=== PATIENT | male | born 1960 | race Caucasian/White ===

== ENCOUNTER → 2016-08-25 | Outpatient (CLI) | payer OTHER ==
[2016-08-25 10:19] LABS: ESTIMATED AVERAGE GLUCOSE 126 mg/dl; HA1C FLAG Normal (Normal)
[2016-08-25 10:25] LABS: CHOLESTEROL/HDL RATIO 3.9
== END | disposition home or self-care (01) ==
LOC: C.LAB 07:22
PROVIDERS: ATTEND Internal Medicine
DX: E78.5 Hyperlipidemia, unspecified (principal); R73.9 Hyperglycemia, unspecified

== ENCOUNTER → 2017-02-25 | Outpatient (CLI) | payer OTHER ==
[2017-02-25 08:42] LABS: ALT/SGPT 30 U/L (12-78); BLOOD UREA NITROGEN 17 mg/dl (7-18); BUN/CREATININE RATIO 17.4 (10-20); CALCIUM 9.2 mg/dl (8.5-10.1); CARBON DIOXIDE 32 mmol/L (21-32); CHLORIDE 107 mmol/L (98-107); CHOLESTEROL 124 mg/dl (0-200); CREATININE 0.99 mg/dl (0.60-1.40); GLUCOSE 95 mg/dl (70-99); POTASSIUM 4.1 mmol/L (3.5-5.1); SODIUM 141 mmol/L (136-145); TRIGLYCERIDES 98 mg/dl (0-150); VERY LOW DENSITY LIPOPROT CALC 20 mg/dl
[2017-02-25 08:51] LABS: ALKALINE PHOSPHATASE 62 U/L (45-117); AST/SGOT 20 U/L (15-37); CHOLESTEROL/HDL RATIO 3.3; HDL CHOLESTEROL 38 mg/dl; LDL CHOLESTEROL CALCULATED 66 mg/dl; PROSTATE SPECIFIC ANTIGEN 0.792 ng/ml (0.000-4.000)
[2017-02-25 08:58] LABS: ESTIMATED AVERAGE GLUCOSE 131 mg/dl; HA1C FLAG Normal (Normal)
== END | disposition home or self-care (01) ==
LOC: C.LAB 07:42
PROVIDERS: ATTEND Internal Medicine
DX: E78.5 Hyperlipidemia, unspecified (principal); N40.0 Benign prostatic hyperplasia without lower urinary tract symptoms; E03.9 Hypothyroidism, unspecified; R73.9 Hyperglycemia, unspecified

== ENCOUNTER → 2017-06-28 | Outpatient (CLI) | payer OTHER | END | disposition home or self-care (01) | LOC: C.LAB 07:12 | PROVIDERS: ATTEND Internal Medicine Endocrinology, Diabetes & Metabolism | DX: R73.9 Hyperglycemia, unspecified (principal) ==

== ENCOUNTER → 2017-09-04 | Outpatient (CLI) | payer OTHER ==
[2017-09-04 11:49] LABS: ALBUMIN 3.6 gm/dl (3.4-5.0); ALT/SGPT 29 U/L (12-78); AST/SGOT 21 U/L (15-37); BLOOD UREA NITROGEN 21 mg/dl (7-18); CALCIUM 9.3 mg/dl (8.5-10.1); CARBON DIOXIDE 31 mmol/L (21-32); CREATININE 1.04 mg/dl (0.60-1.40); GLUCOSE 106 mg/dl (70-99); POTASSIUM 3.7 mmol/L (3.5-5.1); SODIUM 140 mmol/L (136-145)
[2017-09-04 11:58] LABS: ALKALINE PHOSPHATASE 64 U/L (45-117); CHOLESTEROL 104 mg/dl (0-200); LDL CHOLESTEROL CALCULATED 46 mg/dl; TOTAL PROTEIN 7.2 gm/dl (6.4-8.2)
== END | disposition home or self-care (01) ==
LOC: C.LABBC 07:26
PROVIDERS: ATTEND Internal Medicine
DX: E03.9 Hypothyroidism, unspecified (principal); R73.9 Hyperglycemia, unspecified; E78.5 Hyperlipidemia, unspecified; Z11.59 Encounter for screening for other viral diseases

== ENCOUNTER 2020-08-25 19:06 | Observation (INO) ==
[2020-08-25] MEDS ORDERED: ASPIRIN CHEW 324 MG PO STA (19:17)
[2020-08-25 19:24] LABS: Hematocrit (blood only) 48.1 % (42-52); Hemoglobin 16.2 g/dL (14.0-18.0); Mean Corpuscular Hemoglobin 29.2 pg (25-34); Mean Corpuscular Hgb Conc 33.7 g/dL (32-36); Mean Corpuscular Volume 86.7 fL (80-100); Platelet Count 240 K/uL (130-400); RDW Coefficient of Variation 14.2 % (11.5-14.5); RDW Standard Deviation 45.3 fL (36.4-46.3); Red Blood Count 5.55 M/uL (4.7-6.1); White Blood Count 7.51 K/uL (4.8-10.8)
[2020-08-25 19:35] LABS: INR 0.9 (0.9-1.1); Partial Thromboplastin Ratio 1.1; Partial Thromboplastin Time 30.5 Seconds (21.0-31.0); Prothrombin Time 9.9 Seconds (9.0-12.0)
[2020-08-25 19:42] LABS: Alanine Aminotransferase 60 U/L (12-78); Albumin Level 3.6 gm/dl (3.4-5.0); Aspartate Aminotransferase 31 U/L (15-37); BUN Creatinine Ratio 22.4 (10-20); Bilirubin Direct 0.1 mg/dl (0-0.2); Blood Urea Nitrogen 23 mg/dl (7-18); Calcium 9.4 mg/dl (8.5-10.1); Carbon Dioxide 30 mmol/L (21-32); Chloride 103 mmol/L (98-107); Creatinine Clr Calc Pharmacy 73.8 ml/min; Est GFR (African American) 91.1; Est GFR (Non-African American) 78.6; Glucose 96 mg/dl (70-99); Lipase 288 U/L (73-393); Potassium 3.4 mmol/L (3.5-5.1); Sodium 140 mmol/L (136-145)
[2020-08-25 19:48] LABS: Alkaline Phosphatase 108 U/L (45-117); Bilirubin,Total 0.3 mg/dl (0.2-1); Total Protein 7.6 gm/dl (6.4-8.2); Troponin I < 0.015 ng/ml (0-0.045)
[2020-08-25 20:00] LABS: Basophils # (auto) 0.04 K/uL (0-0.2); Basophils % (auto) 0.5 %; Eosinophils # (auto) 0.44 K/uL (0-0.5); Eosinophils % (auto) 5.9 %; Immature Granulocytes # (auto) 0.01 K/uL (0.00-0.02); Immature Granulocytes % (auto) 0.1 %; Lymphocytes % (auto) 54.6 %; Monocytes # (auto) 0.81 K/uL (0.11-0.59); Monocytes % (auto) 10.8 %; Neutrophils # (auto) 2.11 K/uL (1.4-6.5); Neutrophils % (auto) 28.1 %
--- NOTE | 2020-08-25 20:07 | XRay Report ---
XR chest 2V PA/lateral HISTORY: 59 years-old Male Chest Pain . Chest pain COMPARISON: Chest radiograph 01/29/2018 TECHNIQUE: PA and lateral views of the chest FINDINGS: Cardiomediastinal and hilar silhouettes are within normal limits. No pneumothorax, pleural effusion, airspace consolidation or overt pulmonary edema. Bones of the chest appear grossly intact. IMPRESSION: No acute process. ACT 112: Negative or not required by law. The above report was generated using voice recognition software. It may contain grammatical, syntax o r spelling errors. Electronically signed by: Kumar Ferrera M.D. 08/25/2020 8:05 PM
--- NOTE | 2020-08-25 21:30 | History & Physical Report ---
Date of Service August 25, 2020 Assessment & Plan (1) Chest pain: 59yo male with history of HTN, HLP, pre-DM and strong family history of CAD presenting with episodic left sided chest discomfort. Troponin x 1 negative. EKG with no acute ischemic changes -Observation to PCU -Trend troponin q 8 hours x 3 sets -Check Hgb A1C and lipid panel -ASA 81mg po daily -Continue Atorvastatin 10mg po qHS -Nitro as needed for CP Present on Admission?: Yes (2) Hypertension: Blood pressure acceptable at present -Continue Chlorthalidone -Continue Benicar -Continue to monitor (3) Dyslipidemia: Chronic. -Check lipid panel -Continue Atorvastatin -Continue CoQ10 -Patient on Rapatha q 2 weeks Present on Admission?: Yes (4) Impaired fasting glucose: Blood sugar well controlled at present, 96. -Hold home agents - Metformin, Empagliflozin and Semaglutide -ISS -Goal blood sugar 100 - 140 -Check HgbA1C F/E/N - Heplock. K repletion with 40mEq - repeat chemistry in AM, Vegetarian diet Ppx - Low risk for DVT, encourage ambulation Code - Full Dispo - Admit to PCU Present on Admission?: Yes History of Present Illness Chief Complaint: chest pain Primary Care Provider: Dl Rogers MD Arnel Gonzalez is a 59yo male presenting with episodic chest discomfort. He reports experiencing brief episodes of left sided chest discomfort today. Over the last 7-10 days he has woken up between 03:00 and 05:00 with the feeling of a racing heart and pounding headache. He checked his pulse during these episodes and found it to be 90 - 100 bpm and regular. He reports his baseline resting heart rate to be typically 50-60 bpm. He also reports BP has been higher than usual - appx 170/110 at times. Patient is very active. He reports slight decrease in exercise tolerance with some mild BERRY and easy fatigability. He denies exertional chest pain or palpitations. No syncope. No edema/orthopnea. Patient with history of HTN - well controlled on outpatient regimen as well as pre-DM. He has a strong family history of CAD - brother age 65 with recent CABG x 4V, brother age 55 with cardiac stent, father with ischemic cardiomyopathy, mother with CAD as well. Patient had a cardiac CT performed appx 5 years ago which showed diffuse, non- obstructive disease in coronary vessels - Cx and LAD. He has had both stress echo and dobutamine stress testing in the past which were unremarkable - no recent stress testing. No history of prior cardiac catheterization. On arrival to the ER patient afebrile, HD stable, NAD ER Course: ASA 324mg Allergies Allergy/AdvReac Type Severity Reaction Status Date / Time rosuvastatin [From Crestor] AdvReac Mild Muscle Verified 08/25/20 21:10 spasms Home Medications Medication Instructions Recorded Confirmed Type cholecalciferol (vitamin D3) 125 5,000 units PO QPM 04/25/19 08/25/20 History mcg (5,000 unit) capsule coenzyme Q10 400 mg capsule 400 mg PO QPM 04/25/19 08/25/20 History folic acid 1 mg tablet 1 mg PO QAM 04/25/19 08/25/20 History aspirin 81 mg PO QAM 07/02/19 08/25/20 History chlorthalidone 12.5 mg PO QAM 07/02/19 08/25/20 History Benicar 40 mg tablet 40 mg PO HS #30 tab NS 03/24/20 08/25/20 Rx atorvastatin 10 mg tablet 10 mg PO HS #90 tab 03/24/20 08/25/20 Rx empagliflozin 10 mg tablet 10 mg PO QAM #30 tab 03/24/20 08/25/20 Rx metformin 500 mg tablet,extended 500 mg PO QAM #100 tab 03/24/20 08/25/20 Rx release 24 hr potassium chloride 10 mEq 10 meq PO QAM #100 tab 03/24/20 08/25/20 Rx tablet,extended release evolocumab [Repatha SureClick] 140 mg SUBCUT .[id number] 08/25/20 08/25/20 History semaglutide [Rybelsus] 7 mg PO QAM 08/25/20 08/25/20 History Past Med/Surg History Medical History (Updated 08/26/20 @ 02:07 by Jelena Mcnamara DO) Diabetes mellitus, type 2 Hx of hepatitis HX OF HEPATITS A A CHILD AND NO CURRENT PROBLEMS Hyperlipidemia Hypertension Surgical History History of colonoscopy History of herniorrhaphy right inguinal hernia about 15 yrs ago S/P tonsillectomy Family History Mother Cardiac disorder Diabetes Father Cardiac disorder Hypertension Family/Other Heart disease Denies family history of Colon cancer Ovarian cancer Prostate cancer Myocardial infarction Breast cancer Social History Smoking Status: Never smoker Second Hand Exposure: No; Hx Alcohol Use: Yes (social) Alcohol type: wine Hx Substance Use: No Preferred Language: Cambodian Communication Ability: Effective Visual Impairment: No Limitations Hearing Ability: Normal Research Hydrologist Required: No Beliefs That Will Affect Care: None marital status: Current Living Situation: Spouse current occupational status: employed current occupation: Physician Feels Safe at Home: Yes Safety Concerns: Feels Safe At This Time Childhood Exposure to Second-Hand Smoke: No Dental Care, Regularly: Yes Physical Activity Frequency: 3-4 Times per Week Seatbelt Use: always Sunscreen Use: Yes Assistive Devices: Glasses Review of Systems Review of Systems: All systems reviewed & are unremarkable except as noted in HPI & below Physical Exam Physical Exam: General: patient resting comfortably, NAD, non-toxic in appearance, AA&O x 4 Skin: warm, dry, intact, no rashes or lesions HEENT: NC/AT, PERRL, EOMI, anicteric sclera, conjunctiva without injection, external ear normal to inspection and nontender, nares patent, moist mucus membranes, dentition intact, no oropharyngeal lesions, neck supple, trachea midline, no LAD, no thyromegaly, no JVD Heart: +S1/S2, regular, no m/r/g Lungs: equal air entry bilaterally, no rales/rhonchi/wheezes Abd: +BS, soft, NT/ND, no masses/organomegaly/ascites Ext: warm, 2+ pulses in UE/LE bilaterally, no clubbing/cyanosis or edema Neuro: nonfocal, patient AA&O x 4, speech intact, no facial droop, moving all extremities on command with equal strength 5/5 Results & Data Results & Data ([facility]) Vital Signs (Past 12 Hours) Vital Signs Temp Pulse Resp BP Pulse Ox 08/25/20 20:00 65 18 135/91 97 08/25/20 19:30 61 16 140/95 97 08/25/20 19:28 60 18 97 08/25/20 19:15 66 14 139/88 96 08/25/20 19:10 36.8 C 59 L 18 139/88 97 PG Care Time/CCT Total # of Minutes Spent Total Time Spent with Patient: Total time spent is greater than 50% in coordination of care (as documented) at patient's floor/unit and/or counseling patient: Coding Level of Care Code 79779 OBS Care - Level 3 Diagnoses Chest pain R07.9 Chest pain type: unspecified Hypertension I10 Hypertension type: essential hypertension Dyslipidemia E78.5 Impaired fasting glucose R73.01 (1) Chest pain Chest pain type: unspecified Qualified Code(s): R07.9 - Chest pain, unspecif ied (2) Hypertension Hypertension type: essential hypertension Qualified Code(s): I10 - Essential (primary) hypertension
[2020-08-25] MEDS ORDERED: GLUCAGON FOR INJ 1 MG VIAL SQ PRN (22:57)
[2020-08-25] MEDS ORDERED: ACETAMINOPHEN 325 MG TAB PO PRN (22:57)
[2020-08-25] MEDS ORDERED: DEXTROSE 50% 50 ML SYRINGE IV PRN (22:57)
[2020-08-25] MEDS ORDERED: GLUCOSE 10 TABS/TUBE PO PRN (22:57)
[2020-08-25] MEDS ORDERED: CARBOHYDRATES FOR HYPOGLYCEMIA PO PRN (22:57)
[2020-08-25] MEDS ORDERED: POTASSIUM CHLORIDE CRTAB 20 MEQ TABCR PO STA (22:57)
[2020-08-25] MEDS ORDERED: NITROGLYCERIN SL 0.4 MG/TAB TAB SL PRN (22:57)
[2020-08-25] MEDS ORDERED: ONDANSETRON INJ 2 MG/ML 2 ML VIAL IV PRN (22:57)
[2020-08-25] MEDS ORDERED: GLUCOSE 40% GEL 15 GM TUBE PO PRN (22:57)
[2020-08-25 23:14] LABS: Magnesium 2.4 mg/dl (1.8-2.4)
--- NOTE | 2020-08-26 02:06 | Emergency Department Note ---
History of Present Illness General Chief Complaint: Chest Pain History of Present Illness Provider Complaint: chest pain Onset (ago): hour(s) less than 1 Duration: intermittent and now resolved Onset: during rest Pain Location: left chest Pain Radiation: none Severity: moderate Maximum Pain Intensity: 7 Current Pain Intensity: 0 Quality: + aching Relieved By: + nothing Exacerbated By: + nothing Context: no recent illness, no recent surgery, no recent immobilization, no recent travel, no trauma/injury, no new medications and no history of DVT/PE Associated symptoms: + palpitations; no nausea, no vomiting, no diaphoresis, no dyspnea, no sense of impending doom, no syncope, no fever, no cough and no leg swelling Patient reports he had 4 episodes within 15 minutes when his symptoms started approximately 1 hour ago. He states the pain lasted for 15 to 20 seconds and then resolved without intervention. Home Medications Medication Instructions Recorded Confirmed Type cholecalciferol (vitamin D3) 125 5,000 units PO QPM 04/25/19 08/25/20 History mcg (5,000 unit) capsule coenzyme Q10 400 mg capsule 400 mg PO QPM 04/25/19 08/25/20 History folic acid 1 mg tablet 1 mg PO QAM 04/25/19 08/25/20 History aspirin 81 mg PO QAM 07/02/19 08/25/20 History chlorthalidone 12.5 mg PO QAM 07/02/19 08/25/20 History Benicar 40 mg tablet 40 mg PO HS #30 tab NS 03/24/20 08/25/20 Rx atorvastatin 10 mg tablet 10 mg PO HS #90 tab 03/24/20 08/25/20 Rx empagliflozin 10 mg tablet 10 mg PO QAM #30 tab 03/24/20 08/25/20 Rx metformin 500 mg tablet,extended 500 mg PO QAM #100 tab 03/24/20 08/25/20 Rx release 24 hr potassium chloride 10 mEq 10 meq PO QAM #100 tab 03/24/20 08/25/20 Rx tablet,extended release evolocumab [Repatha SureClick] 140 mg SUBCUT .[id number] 08/25/20 08/25/20 History semaglutide [Rybelsus] 7 mg PO QAM 08/25/20 08/25/20 History Allergies Allergy/AdvReac Type Severity Reaction Status Date / Time rosuvastatin [From Crestor] AdvReac Mild Muscle Verified 08/25/20 21:10 spasms Past Med/Surg History Medical History Diabetes mellitus, type 2 Fever Headache Hx of hepatitis HX OF HEPATITS A A CHILD AND NO CURRENT PROBLEMS Hyperlipidemia Hypertension Surgical History History of colonoscopy History of herniorrhaphy right inguinal hernia about 15 yrs ago S/P tonsillectomy Family History Mother Cardiac disorder Diabetes Father Cardiac disorder Hypertension Family/Other Heart disease Denies family history of Colon cancer Ovarian cancer Prostate cancer Myocardial infarction Breast cancer Social History Smoking Status: Never smoker Second Hand Exposure: No; Hx Alcohol Use: Yes (social) Alcohol type: wine Hx Substance Use: No Preferred Language: Georgian Communication Ability: Effective Visual Impairment: No Limitations Hearing Ability: Normal Director Facilities Maintenance Required: No Beliefs That Will Affect Care: None marital status: Current Living Situation: Spouse current occupational status: employed current occupation: Physician Feels Safe at Home: Yes Safety Concerns: Feels Safe At This Time Childhood Exposure to Second-Hand Smoke: No Dental Care, Regularly: Yes Physical Activity Frequency: 3-4 Times per Week Seatbelt Use: always Sunscreen Use: Yes Assistive Devices: Glasses Review of Systems A total of 10 systems reviewed and were otherwise negative Physical Exam Vital Signs Vital Signs - 24 hr 08/25/20 19:10 08/25/20 19:15 08/25/20 19:28 Temperature 36.8 C Temperature Source Oral Pulse Rate 59 L 66 60 Pulse Rate from SpO2 Sensor 61 Pulse Rhythm Regular Regular Pulse Strength Normal Respiratory Rate 18 14 18 Respiratory Effort / Characteristics Non-Labored Spontaneous Respiratory Depth Normal Respiratory Pattern Regular Blood Pressure 139/88 139/88 Blood Pressure Mean 105 106 Blood Pressure Position Lying Pulse Oximetry 97 96 97 Oxygen Delivery Method Room Air Room Air Room Air Sepsis Recent Fever Within 48 Hours No Sepsis New/Unexplained Change in Mental Status No Sepsis Action Taken by Nursing No Action Required 08/25/20 19:30 08/25/20 20:00 08/25/20 20:30 Temperature Temperature Source Pulse Rate 61 65 58 L Pulse Rate from SpO2 Sensor 60 64 58 L Pulse Rhythm Pulse Strength Respiratory Rate 16 18 16 Respiratory Effort / Characteristics Respiratory Depth Respiratory Pattern Blood Pressure 140/95 135/91 139/94 Blood Pressure Mean 124 111 104 Blood Pressure Position Pulse Oximetry 97 97 97 Oxygen Delivery Method Room Air Room Air Room Air Sepsis Recent Fever Within 48 Hours Sepsis New/Unexplained Change in Mental Status Sepsis Action Taken by Nursing 08/25/20 21:00 Temperature Temperature Source Pulse Rate 56 L Pulse Rate from SpO2 Sensor 56 L Pulse Rhythm Pulse Strength Respiratory Rate 21 Respiratory Effort / Characteristics Respiratory Depth Respiratory Pattern Blood Pressure 123/96 Blood Pressure Mean 99 Blood Pressure Position Pulse Oximetry 98 Oxygen Delivery Method Room Air Sepsis Recent Fever Within 48 Hours Sepsis New/Unexplained Change in Mental Status Sepsis Action Taken by Nursing Physical Exam GENERAL: He is oriented to person, place, and time. He appears well-developed and well-nourished. He does not appear distressed. HENT: Exam performed. - Head: Normocephalic and atraumatic. - Right Ear: External ear normal. No mastoid tenderness. - Left Ear: External ear normal. No mastoid tenderness. - Mouth/Throat: The oropharynx is clear and moist. No trismus in the jaw. No dental abscesses or uvula swelling. No oropharyngeal exudate or tonsillar abscesses. EYES: Conjunctivae and EOM are normal. Pupils are equal, round, and reactive to light. Right eye exhibits no discharge. Left eye exhibits no discharge. No scleral icterus. NECK: Normal range of motion. Neck supple. No JVD present. No spinous process tenderness present. No carotid bruit present. No rigidity. No tracheal deviation and normal range of motion present. No Brudzinski's sign and no Kernig's sign noted. CV: Normal rate, regular rhythm, normal heart sounds and intact distal pulses. There is no peripheral edema. Palpable radial pulses bue. PULM/CHEST: Effort normal and breath sounds normal. No respiratory distress. No stridor. He has no wheezes. He has no rales. - Chest Wall: He exhibits no tenderness. ABD: The abdomen is soft. Bowel sounds are normal. He has no distension. No mass is present. There is no tenderness. There is no rebound, no guarding, no Brewer's sign and no tenderness at McBurney's point. Rovsig negative. MUSC/SKEL: Normal range of motion. There is no peripheral edema, tenderness or deformity. LYMPH: No cervical adenopathy. NEURO: He is alert and oriented to person, place, and time. He has normal strength. No cranial nerve deficit or sensory deficit. Coordination and gait normal. GCS eye subscore is 4. GCS verbal subscore is 5. GCS motor subscore is 6. Cerebellar tests wnl. SKIN: Skin is warm and dry. He is not diaphoretic. PSYCH: He has a normal mood and affect. Behavior is normal. Judgment and thought content normal. Course Course 1908: The patient was evaluated in room C3. A complete history and physical exam was performed. Cardiac monitoring: An order was placed for continuous cardiac monitoring. The monitor shows a rate of 60 with sinus rhythm 2024: Vital signs stable. Labs and imaging within normal limits. Patient had an acute episode where he started having chest discomfort again for a few seconds but resolved without intervention. EKGs have all been within normal limits. Patient has a moderate heart score. Patient was offered inpatient observation versus close outpatient follow-up with cardiology and after discussing with his he elected to have inpatient observation for rule out ACS. Dr. Mcnamara [facility] hospitalist will evaluate the patient for admission. Administered Medications Discontinued Medications Aspirin (Aspirin Chew 324 Mg) 324 mg PO NOW STA Stop: 08/25/20 19:18 Last Admin: 08/25/20 19:32 Dose: 324 mg Documented by: [id number] Potassium Chloride (Potassium Chloride Crtab 20 Meq Tabcr) 40 meq PO NOW STA Stop: 08/25/20 22:58 Last Admin: 08/26/20 00:10 Dose: 40 meq Documented by: [id number] Medical Decision Making Laboratory Data Result diagrams: 08/25/20 19:12 08/25/20 19:12 Labs: Lab Results 08/25/20 08/25/20 08/25/20 Range/Units 19:12 19:12 19:12 WBC 7.51 (4.8-10.8) K/uL RBC 5.55 (4.7-6.1) M/uL Hgb 16.2 (14.0-18.0) g/dL Hct 48.1 (42-52) % MCV 86.7 (80-100) fL MCH 29.2 (25-34) pg MCHC 33.7 (32-36) g/dL RDW Std Deviation 45.3 (36.4-46.3) fL RDW Coeff of Anastasiya 14.2 (11.5-14.5) % Plt Count 240 (130-400) K/uL MPV 10.0 (7.4-10.4) fL Immature Gran % (Auto) 0.1 % Neut % (Auto) 28.1 % Lymph % (Auto) 54.6 % Cavalier % (Auto) 10.8 % Eos % (Auto) 5.9 % Baso % (Auto) 0.5 % Neut # (Auto) 2.11 (1.4-6.5) K/uL Lymph # (Auto) 4.10 H (1.2-3.4) K/uL Cavalier # (Auto) 0.81 H (0.11-0.59) K/uL Eos # (Auto) 0.44 (0-0.5) K/uL Baso # (Auto) 0.04 (0-0.2) K/uL Immature Gran # (Auto) 0.01 (0.00-0.02) K/uL PT 9.9 (9.0-12.0) Seconds INR 0.9 (0.9-1.1) APTT 30.5 (21.0-31.0) Seconds PTT Ratio 1.1 Sodium 140 (136-145) mmol/L Potassium 3.4 L (3.5-5.1) mmol/L Chloride 103 (98-107) mmol/L Carbon Dioxide 30 (21-32) mmol/L Anion Gap 6.0 (3-11) BUN 23 H (7-18) mg/dl Creatinine 1.03 (0.6-1.4) mg/dl Est Cr Clr Drug Dosing 73.8 ml/min Est GFR ( Amer) 91.1 Est GFR (Non-Af Amer) 78.6 BUN/Creatinine Ratio 22.4 H (10-20) Glucose 96 (70-99) mg/dl Calcium 9.4 (8.5-10.1) mg/dl Magnesium 2.4 (1.8-2.4) mg/dl Total Bilirubin 0.3 (0.2-1) mg/dl Direct Bilirubin 0.1 (0-0.2) mg/dl AST 31 (15-37) U/L ALT 60 (12-78) U/L Alkaline Phosphatase 108 (45-117) U/L Troponin I < 0.015 (0-0.045) ng/ml Total Protein 7.6 (6.4-8.2) gm/dl Albumin 3.6 (3.4-5.0) gm/dl Lipase 288 (73-393) U/L Imaging Data Chest x-ray: Radiologist's impression: XR chest 2V PA/lateral HISTORY: 59 years-old Male Chest Pain . Chest pain COMPARISON: Chest radiograph 01/29/2018 TECHNIQUE: PA and lateral views of the chest FINDINGS: Cardiomediastinal and hilar silhouettes are within normal limits. No pneum othorax, pleural effusion, airspace consolidation or overt pulmonary edema. Bones of the chest appear grossly intact. IMPRESSION: No acute process. ACT 112: Negative or not required by law. The above report was generated using voice recognition software. It may contain grammatical, syntax or spelling errors. Electronically signed by: Kumar Ferrera M.D. 08/25/2020 8:05 PM Dictated: 08/25/202003Transcribed: 08/25/202003 ECG Data Additional Comments: EKG #1 at 1908: Sinus bradycardia with rate of 59. IL QRS and QTc intervals within normal limits. No ST elevation or ST depression. EKG #2 at 1932. Sinus rhythm with rate of 60. IL QRS and QTc intervals within normal limits. No ST elevation or ST depression. EKG #3 at 2019: Sinus bradycardia with a rate of 55. IL QRS and QTc intervals within normal limits. No ST elevation or ST depression. [facility] Narrative 1909: The patient was evaluated in room C3. A complete history and physical exam was performed. Cardiac monitoring: An order was placed for continuous cardiac monitoring. The monitor shows a rate of 60 with sinus rhythm 2024: Vital signs stable. Labs and imaging within normal limits. Patient had an acute episode where he started having chest discomfort again for a few seconds but resolved without intervention. EKGs have all been within normal limits. Patient has a moderate heart score. Patient was offered inpatient observation versus close outpatient follow-up with cardiology and after discussing with his he elected to have inpatient observation for rule out ACS. [facility] for admission. Impression & Plan Chest pain Discharge Plan Visit Data Chief Complaint: Chest Pain ED Provider: Rajat Davila Problem: Chest pain Patient Disposition: Admitted As Inpatient Discharge Instructions Interventions: ED Discharge Assessment Last Done: 08/25/20 22:22 Risk - HEART Scoring HEART Score for Major Cardiac Events History: Moderately Suspicious EKG: Normal Age: 45-64 Years of Age Risk Factors: >2 Risk Factors Initial Troponin: Normal Limit Total Points: 4 Risk Level: Moderate Risk for Major Adverse Cardiac Event HEART Score Interpretation: Score interpretation (as per derivation study): HEART Adverse Cardiac Score Event Risk Management 0-3 0.9-1.7% In the HEART Score study, these patients were discharged. 4-6 12-16.6% In the HEART Score study, these patients were admitted to the hospital. 7-10 50-65% In the HEART Score study, these patients were candidates for early invasive measurements. Original Source: 1. Issa AJ, Karly BE, Sabina RIZWANA. Chest pain in the emergency room: value of the HEART score. Neth Heart J. 2008; 16(6):191-6.
[2020-08-26 03:49] LABS: Chol HDL Ratio 2; Cholesterol 79 mg/dl (0-200); HDL Cholesterol 37 mg/dl; LDL Cholesterol Calculated 10 mg/dl; Triglycerides 162 mg/dl (0-150); VLDL Cholesterol 32 mg/dl
[2020-08-26 05:58] LABS: Estimated Average Glucose 126 mg/dl
--- NOTE | 2020-08-26 07:09 | Hospitalist Progress Note ---
Date of Service August 26, 2020 Assessment & Plan (1) Chest pain: Strong family history of CAD. Patient with previous treadmill stress test as well as dobutamine stress test in the past both negative. Troponin less than 0.015 x3 EKG with no specific ST changes Hemodynamically stable TSH 3.060 Cardiology consulted -appreciate Dr. Veras's input Patient will undergo treadmill stress test this morning. Continue antihypertensives Continue aspirin 81 mg p.o. daily Continue n.p.o. We will continue to follow on telemetry (2) Hyperlipidemia: Atorvastatin daily Continue evolocumab (Repatha) Triglycerides elevated at 162. HDL low at 37. Other labs within normal limits. Outpatient follow-up (3) Diabetes mellitus, type 2: Hemoglobin A1c is 6.0% Continue empagliflozin and semaglutide Hold Metformin while inpatient Continue cardiac diabetic diet (4) Right knee DJD: Follows with Dr. Masters No significant pain at this time. No effusion on examination Supportive care (5) Subclinical hypothyroidism: Acquired TSH is 3.060 Patient is not on thyroid replacement at home Continue outpatient management (6) Hypertension: Episodic hypertension at home during the night We will continue with chlorthalidone and Benicar while inpatient Hold chlorthalidone this morning as blood pressure is 123 systolically and patient will be undergoing stress test Further management of antihypertensives as an outpatient (7) Benign prostate hyperplasia: Follows with [facility] urology No history of prostate cancer Most recent PSA was 1.21 on 02/28/2020 Not on an alpha-tung Continue outpatient management Admission and Anticipated Discharge Date Admission Date: August 25, 2020 Supervising Physician Co-Signing Physician Notes Patient was seen and examined independently I discussed the case with Kamari Lopez PAC I reviewed pertinent past medical social family history and also the plan of care and agree with the plan of care. Patient was seen in conjunction with Mr. Lopez, Dr. Veras and myself. We came up with the formulated plan to undergo stress test which will be performed later this morning Examination shows patient to be stable with normal cardiac tones clear lungs and stable vital signs. Remainder disposition will be based upon stress test Any exceptions will be noted below Subjective Attending: Dr. Buckner This is a 59-year-old male that was admitted last night with chest pain. His troponins have been negative x3. Potassium was 3.4 on admission and he received 40 mEq of potassium chloride orally. Potassium level this morning is 4.5. Other electrolytes are balanced. Patient did have one episode of palpation last night. At that time there was no elevation in blood pressure. Patient has had no other significant chest pain throughout the night. He has no arrhythmias demonstrated on telemetry. He has been afebrile and is oxygen in the mid to upper 90s on room air. The patient does have some bradycardia which is usual for him. He reports that heart rate is typically in the 50s and 40s at night while sleeping. This morning, resting heart rate is 55 bpm. Blood pressure is currently 123/82. The highest blood pressure since admission is 148/94. Patient does question some symptoms as being related to GERD. He has been on H2 blockers as well as PPI in the past with no effect. Patient denies any nausea, vomiting, diarrhea. He has no abdominal pain. He did have a slight headache this morning but had no nocturnal sweats. Chest pain is not reproducible. He has no asymmetrical edema of his lower extremities. In fact, he denies any edema. As an outpatient he has had some pitting edema but wears compression socks at work. He has no calf pain or tenderness. He has no pleuritic type pain. He denies cough or sputum. He has no hemoptysis. He denies melena, hematochezia, bright red blood per rectum, hematuria, hematemesis. He has no other acute complaints at this time. Review of Systems Review of Systems: All systems reviewed & are unremarkable except as noted in Subjective Physical Exam Physical Exam: GENERAL : No acute distress. Pleasant. Talkative. No conversational dyspnea EYES: No icterus, gaze conjugate. Pupils are equal and round. NOSE: No evidence of epistaxis MOUTH: Procedural mask in place NECK: Supple. No appreciation of carotid bruits. No appreciation of stridor LUNGS: CTA B/L, no wheezes, rales or rhonchi. Good inspirational effort. No induced cough with deep breathing HEART: Regular, rate controlled in the 50s. No appreciated murmurs gallops or rubs. ABDOMEN: Soft, NT, ND, BS Present EXTREMITIES: No LE edema, pedal pulses intact and equal bilaterally. NEURO: A&OX3. No appreciation of focal deficits with cranial nerves II through XII Results & Data Results & Data ([facility]) Vital Signs (Past 12 Hours) Vital Signs Temp Pulse Pulse Resp BP BP Pulse Ox 08/26/20 04:00 55 L 18 08/26/20 03:10 60 18 105/69 08/26/20 03:00 52 L 18 08/26/20 02:00 57 L 20 08/26/20 01:00 59 L 17 08/26/20 00:11 62 15 08/26/20 00:10 53 L 17 111/73 08/26/20 00:00 76 18 08/25/20 23:10 36.9 C 61 16 131/86 97 08/25/20 23:00 57 L 26 H 95 08/25/20 22:39 61 15 131/86 97 08/25/20 22:00 65 24 08/25/20 21:56 36.9 C 65 28 H 08/25/20 21:55 66 21 148/94 H 98 08/25/20 21:30 61 20 148/94 H 98 08/25/20 21:00 56 L 21 123/96 98 08/25/20 20:30 58 L 16 139/94 97 08/25/20 20:00 65 18 135/91 97 08/25/20 19:30 61 16 140/95 97 08/25/20 19:28 60 18 97 08/25/20 19:15 66 14 139/88 96 08/25/20 19:10 36.8 C 59 L 18 139/88 97 Laboratory Results 08/25/20 19:12 08/25/20 19:12 INR 0.9 (0.9-1.1) 08/25/20 19:12 08/25/20 19:12 08/26/20 07:12 08/25/20 08/26/20 08/26/20 19:12 03:10 07:12 Troponin I < 0.015 < 0.015 < 0.015 Diagnostic Findings XR chest 2V PA/lateral HISTORY: 59 years-old Male Chest Pain . Chest pain COMPARISON: Chest radiograph 01/29/2018 TECHNIQUE: PA and lateral views of the chest FINDINGS: Cardiomediastinal and hilar silhouettes are within normal limits. No pneum othorax, pleural effusion, airspace consolidation or overt pulmonary edema. Bones of the chest appear grossly intact. IMPRESSION: No acute process. Electronically signed by: Kumar Ferrera M.D. 08/25/2020 8:05 PM PG Care Time/CCT Total # of Minutes Spent Total Time Spent with Patient: Total time spent is greater than 50% in coordination of care (as documented) at patient's floor/unit and/or counseling patient: Coding Level of Care Code None Diagnoses Chest pain R07.9 Chest pain type: unspecified Hyperlipidemia E78.01 Hyperlipidemia type: familial hypercholesterolemia Diabetes mellitus, type 2 E11.9 Diabetes mellitus complication status: without complication Diabetes mellitus care home insulin use: without intermediate project manager use Right knee DJD M17.5 Osteoarthritis type: other secondary Subclinical hypothyroidism E03.9 Hypertension I10 Hypertension type: essential hypertension Benign prostate hyperplasia N40.0 Lower urinary tract symptom presence: symptoms absent (1) Benign prostate hyperplasia Lower urinary tract symptom presence: symptoms absent Qualified Code(s): N40.0 - Benign prostatic hyperplasia without lower urinary tract symptoms (2) Diabetes mellitus, type 2 Diabetes mellitus complication status: without complication Diabetes mellitus care home insulin use: without care home use Qualified Code(s): E11.9 - Type 2 diabetes mellitus without complications (3) Hyperlipidemia Hyperlipidemia type: familial hypercholesterolemia Qualified Code(s): E78.01 - Familial hypercholesterolemia (4) Right knee DJD Osteoarthritis type: other secondary Qualified Code(s): M17.5 - Other unilateral secondary osteoarthritis of knee (5) Chest pain Chest pain type: unspecified Qualified Code(s): R07.9 - Chest pain, unspecified (6) Hypertension Hypertension type: essential hypertension Qualified Code(s): I10 - Essential (primary) hypertension
--- NOTE | 2020-08-26 07:10 | Cardiology Consultation ---
Date of Consultation August 26, 2020 Assessment & Plan (1) CAD (coronary artery disease): (2) Chest pain: (3) Dyspnea on exertion: (4) Palpitations: (5) Hypertension: (6) Dyslipidemia: (7) Decreased exercise tolerance: ASSESSMENT/PLAN: 1. CAD: Nonobstructive CAD on coronary CTA in 2018. Risk factor modification. Chest discomfort is atypical. Stress echo recommended. Also dyspnea with exertion and decreased exercise tolerance could be due to deconditioning but given risk factors and nonobstructive CAD in 2018, recommend ischemic evaluation. Continue aspirin and statin therapy. Not on beta-tung due to bradycardia. 2. Dyspnea with exertion/decreased exercise tolerance: Could be due to deconditioning as he has not been exercising regularly over the past several months. Stress echo ordered however given CAD risk factors and nonobstructive CAD in the past. He appears euvolemic. 3. Hypertension: Blood pressure well controlled for the most part while hospitalized. Has been having episodes overnight at home. Workup as above. Primary service is also investigating nocturnal hypertension. 4. Palpitations: Etiology unclear. Given his pulse rate during episodes at night, he does not appear to be having any significant tachy arrhythmia as his heart rate increases but remains within normal range. Recommend 2 week MCOT as an outpatient. No arrhythmia thus far while hospitalized. 5. Dyslipidemia: LDL is excellent. Can continue outpatient regimen. 6. Chest pain: Atypical, occurring only at rest and lasting only a few seconds. He has ruled out for myocardial infarction. Given risk factors, stress echo as above. 7. Disposition: He would like to follow-up in the cardiology office on discharge for continued risk factor modification and surveillance purposes. Stress echo is planned for later today. Patient care communicated with primary service, Dr. Nova. Thank you for allowing me to participate in the care of your patient. Please call for any other questions or concerns. Sincerely, César Veras M.D. Addendum: Stress echo was negative with good exercise tolerance and no recurrence of chest discomfort. Will arrange for outpatient event monitor and follow-up in the office upon completion of the monitoring system. Discussed with Dr. Nova. History of Present Illness Reason for Consultation: Chest pain Requesting Physician: Dr. Mcnamara Attending Physician: Eloy Nova MD History of Present Illness Dr. Gonzalez is a very pleasant 59 year old gentleman with a history of hypertension, dyslipidemia, prediabetes, and non-obstructive CAD based on coronary CTA. He was admitted to [facility] on 08/25/2020 with chest discomfort. He has been experiencing a lump in his throat on and off and sometimes Tums can help resolve the symptoms, but not necessarily always. But yesterday, while at rest in an office, he developed left-sided chest pain described as an achy sensation that would last for a few seconds before spontaneously resolving. It recurred a few times and then he went to the emergency department. ECG at that time did not demonstrate any dynamic ST/T-wave abnormalities. While in the ER, he had another 3 episodes while in bed, once again short-lived. There is no radiation of the pain and no diaphoresis. Because of his risk factors, he was concerned about this new symptom and he was brought in for observation and a stress echo was ordered along with serial troponin levels. He admits that he had been exercising regularly until 2019 after he had a knee procedure. He started exercising once again until the COVID19 pandemic began in October of 2019. Since then, he has not been exercising on a regular basis. He had been able to climb 4-5 flights of stairs at work without exertional symptoms. More recently, he now experiences dyspnea with exertion after climbing only 2 or 3 flights of stairs. He believes that deconditioning may be playing a role. He denies shortness of breath at rest. Over the past 10 days or so, he has been awakened at night with severe pounding. His heart rate is typically in the 50s to 60s but during these symptomatic episodes, his heart rate would increase to 70s to 90s on his apple watch. His blood pressure also increased up to 170/110mmHg. At times, he would also be diaphoretic. After 40-60 minutes, things would gradually improved but sometimes when he awakened in the morning to start his day, his blood pressure would geraldine in elevated. He denies snoring and paroxysmal nocturnal dyspnea. He denies melena, hematochezia, hematuria, syncope, near-syncope. He does have occasional lightheadedness when standing up but this resolves with hydration. He admits that he has gained 7-10 lb since the pandemic began. In the past, he had been on atorvastatin 10 mg, titrated to [address] then [address] calcium scoring and Coronary CT angiogram, atorvastatin was increased to 80 mg by his PCP. He had significant myalgias. At that time, atorvastatin was reduced to 10 mg and he was placed on Repatha in 2019. Coronary CTA demonstrated nonobstructive CAD as noted below. He has had multiple stress test in the past, but none recently. Currently, he is chest pain-free. He has had the following studies/procedures: 1. Coronary CTA 04/27/2018: Proximal LAD calcified plaque, less than 25%. Mid LAD calcified and noncalcified plaque 25-49%. RCA diffuse calcified plaque less than 25%. Circumflex less than 25%. Review of systems: As above. Review of systems otherwise negative or unremarkable. Family history: 2 siblings with CAD, 1 with PCI at 55 and 1 with CABG at 65. Father with CAD. Family history with diabetes. Social history: Denies tobacco. Rare alcohol. . Children. 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 Allergies Allergy/AdvReac Type Severity Reaction Status Date / Time rosuvastatin [From Crestor] AdvReac Mild Muscle Verified 08/25/20 21:10 spasms Home Medications Medication Instructions Recorded Confirmed Type cholecalciferol (vitamin D3) 125 5,000 units PO QPM 04/25/19 08/25/20 History mcg (5,000 unit) capsule coenzyme Q10 400 mg capsule 400 mg PO QPM 04/25/19 08/25/20 History folic acid 1 mg tablet 1 mg PO QAM 04/25/19 08/25/20 History aspirin 81 mg PO QAM 07/02/19 08/25/20 History chlorthalidone 12.5 mg PO QAM 07/02/19 08/25/20 History Benicar 40 mg tablet 40 mg PO HS #30 tab NS 03/24/20 08/25/20 Rx atorvastatin 10 mg tablet 10 mg PO HS #90 tab 03/24/20 08/25/20 Rx empagliflozin 10 mg tablet 10 mg PO QAM #30 tab 03/24/20 08/25/20 Rx metformin 500 mg tablet,extended 500 mg PO QAM #100 tab 03/24/20 08/25/20 Rx release 24 hr potassium chloride 10 mEq 10 meq PO QAM #100 tab 03/24/20 08/25/20 Rx tablet,extended release Repatha SureClick 140 mg SUBCUT .[id number] 08/25/20 08/25/20 History Rybelsus 7 mg PO QAM 08/25/20 08/25/20 History Patient History Medical History (Updated 08/26/20 @ 09:23 by Shashank Veras MD) CAD (coronary artery disease) Diabetes mellitus, type 2 Hx of hepatitis HX OF HEPATITS A A CHILD AND NO CURRENT PROBLEMS Hyperlipidemia Hypertension Surgical History History of colonoscopy History of herniorrhaphy right inguinal hernia about 15 yrs ago S/P tonsillectomy Family History Mother Cardiac disorder Diabetes Father Cardiac disorder Hypertension Family/Other Heart disease Denies family history of Colon cancer Ovarian cancer Prostate cancer Myocardial infarction Breast cancer Social History Smoking Status: Never smoker Second Hand Exposure: No; Hx Alcohol Use: Yes (social) Alcohol type: wine Hx Substance Use: No Preferred Language: Khmer Communication Ability: Effective Visual Impairment: No Limitations Hearing Ability: Normal Greenhouse Or Nursery Transplanter Required: No Beliefs That Will Affect Care: None marital status: Current Living Situation: Spouse current occupational status: employed current occupation: Physician Feels Safe at Home: Yes Childhood Exposure to Second-Hand Smoke: No Dental Care, Regularly: Yes Physical Activity Frequency: 3-4 Times per Week Seatbelt Use: always Sunscreen Use: Yes Assistive Devices: Glasses Physical Exam Physical Exam: Gen.: No acute distress. Alert and oriented. HEENT: Anicteric sclera. Neck: No JVD. No bruits. Normal carotid upstrokes bilaterally. Cardiac: PMI was nondisplaced. No ventricular heave. Regular. No ectopy. Normal S1-S2. No murmurs, rubs, or gallops. Pulmonary: Clear to auscultation bilaterally without wheezes, rales, or rhonchi. Abdomen: Soft, nontender, nondistended, with normoactive bowel sounds. No bruits noted. Extremities: 2+ radial pulses bilaterally. 2+ posterior tibialis pulses bilaterally. No edema or cyanosis. No palpable cords. Psychiatric: Affect appears appropriate. Chest: Nontender to palpation P Results & Data ([facility]) Vital Signs (Past 12 Hours) Vital Signs Temp Pulse Pulse Resp BP BP Pulse Ox 08/26/20 04:00 55 L 18 08/26/20 03:10 60 18 105/69 08/26/20 03:00 52 L 18 08/26/20 02:00 57 L 20 08/26/20 01:00 59 L 17 08/26/20 00:11 62 15 08/26/20 00:10 53 L 17 111/73 08/26/20 00:00 76 18 08/25/20 23:10 36.9 C 61 16 131/86 97 08/25/20 23:00 57 L 26 H 95 08/25/20 22:39 61 15 131/86 97 08/25/20 22:00 65 24 08/25/20 21:56 36.9 C 65 28 H 08/25/20 21:55 66 21 148/94 H 98 08/25/20 21:30 61 20 148/94 H 98 08/25/20 21:00 56 L 21 123/96 98 08/25/20 20:30 58 L 16 139/94 97 08/25/20 20:00 65 18 135/91 97 08/25/20 19:30 61 16 140/95 97 08/25/20 19:28 60 18 97 08/25/20 19:15 66 14 139/88 96 08/25/20 19:10 36.8 C 59 L 18 139/88 97 Laboratory Results Laboratory Results - last 24 hr 08/25/20 08/25/20 08/25/20 19:12 19:12 19:12 WBC 7.51 RBC 5.55 Hgb 16.2 Hct 48.1 MCV 86.7 MCH 29.2 MCHC 33.7 RDW Std Deviation 45.3 RDW Coeff of Anastasiya 14.2 Plt Count 240 MPV 10.0 Immature Gran % (Auto) 0.1 Neut % (Auto) 28.1 Lymph % (Auto) 54.6 Hill % (Auto) 10.8 Eos % (Auto) 5.9 Baso % (Auto) 0.5 Neut # (Auto) 2.11 Lymph # (Auto) 4.10 H Hill # (Auto) 0.81 H Eos # (Auto) 0.44 Baso # (Auto) 0.04 Immature Gran # (Auto) 0.01 PT 9.9 INR 0.9 APTT 30.5 PTT Ratio 1.1 Sodium 140 Potassium 3.4 L Chloride 103 Carbon Dioxide 30 Anion Gap 6.0 BUN 23 H Creatinine 1.03 Est Cr Clr Drug Dosing 73.8 Est GFR ( Amer) 91.1 Est GFR (Non-Af Amer) 78.6 BUN/Creatinine Ratio 22.4 H Glucose 96 POC Glucose Estimat Average Glucose Hemoglobin A1c Calcium 9.4 Magnesium 2.4 Total Bilirubin 0.3 Direct Bilirubin 0.1 AST 31 ALT 60 Alkaline Phosphatase 108 Troponin I < 0.015 Total Protein 7.6 Albumin 3.6 Triglycerides Cholesterol LDL Cholesterol, Calc VLDL Cholesterol, Calc HDL Cholesterol Cholesterol/HDL Ratio Lipase 288 TSH Nasal Screen MRSA (PCR) COVID-19 Eval Order Hepatitis C Ab Screen SARS-CoV-2, RNA, NAAT 08/25/20 08/25/20 08/25/20 21:44 21:44 23:30 WBC RBC Hgb Hct MCV MCH MCHC RDW Std Deviation RDW Coeff of Anastasiya Plt Count MPV Immature Gran % (Auto) Neut % (Auto) Lymph % (Auto) Hill % (Auto) Eos % (Auto) Baso % (Auto) Neut # (Auto) Lymph # (Auto) Hill # (Auto) Eos # (Auto) Baso # (Auto) Immature Gran # (Auto) PT INR APTT PTT Ratio Sodium Potassium Chloride Carbon Dioxide Anion Gap BUN Creatinine Est Cr Clr Drug Dosing Est GFR ( Amer) Est GFR (Non-Af Amer) BUN/Creatinine Ratio Glucose POC Glucose Estimat Average Glucose Hemoglobin A1c Calcium Magnesium Total Bilirubin Direct Bilirubin AST ALT Alkaline Phosphatase Troponin I Total Protein Albumin Triglycerides Cholesterol LDL Cholesterol, Calc VLDL Cholesterol, Calc HDL Cholesterol Cholesterol/HDL Ratio Lipase TSH Nasal Screen MRSA (PCR) Negative COVID-19 Eval [facility] C Ab Screen SARS-CoV-2, RNA, NAAT NEGATIVE 08/26/20 08/26/20 08/26/20 03:10 03:10 03:10 WBC RBC Hgb Hct MCV MCH MCHC RDW Std Deviation RDW Coeff of Anastasiya Plt Count MPV Immature Gran % (Auto) Neut % (Auto) Lymph % (Auto) Hill % (Auto) Eos % (Auto) Baso % (Auto) Neut # (Auto) Lymph # (Auto) Hill # (Auto) Eos # (Auto) Baso # (Auto) Immature Gran # (Auto) PT INR APTT PTT Ratio Sodium Potassium Chloride Carbon Dioxide Anion Gap BUN Creatinine Est Cr Clr Drug Dosing Est GFR ( Amer) Est GFR (Non-Af Amer) BUN/Creatinine Ratio Glucose POC Glucose Estimat Average Glucose 126 Hemoglobin A1c 6.0 H Calcium Magnesium Total Bilirubin Direct Bilirubin AST ALT Alkaline Phosphatase Troponin I < 0.015 Total Protein Albumin Triglycerides Cholesterol LDL Cholesterol, Calc VLDL Cholesterol, Calc HDL Cholesterol Cholesterol/HDL Ratio Lipase TSH Nasal Screen MRSA (PCR) COVID-19 Eval Order Hepatitis C Ab Screen Neg SARS-CoV-2, RNA, NAAT 08/26/20 08/26/20 08/26/20 03:10 07:12 07:47 WBC RBC Hgb Hct MCV MCH MCHC RDW Std Deviation RDW Coeff of Anastasiya Plt Count MPV Immature Gran % (Auto) Neut % (Auto) Lymph % (Auto) Hill % (Auto) Eos % (Auto) Baso % (Auto) Neut # (Auto) Lymph # (Auto) Hill # (Auto) Eos # (Auto) Baso # (Auto) Immature Gran # (Auto) PT INR APTT PTT Ratio Sodium 141 Potassium 4.5 D Chloride 109 H Carbon Dioxide 28 Anion Gap 4.0 BUN 19 H Creatinine 1.06 Est Cr Clr Drug Dosing 71.7 Est GFR ( Amer) 88.0 Est GFR (Non-Af Amer) 75.9 BUN/Creatinine Ratio 18.2 Glucose 95 POC Glucose 98 Estimat Average Glucose Hemoglobin A1c Calcium 8.9 Magnesium Total Bilirubin Direct Bilirubin AST ALT Alkaline Phosphatase Troponin I < 0.015 Total Protein Albumin Triglycerides 162 H Cholesterol 79 LDL Cholesterol, Calc 10 VLDL Cholesterol, Calc 32 HDL Cholesterol 37 Cholesterol/HDL Ratio 2 Lipase TSH 3.060 Nasal Screen MRSA (PCR) COVID-19 Eval Order Hepatitis C Ab Screen SARS-CoV-2, RNA, NAAT Diagnostic Findings Telemetry personally reviewed: Sinus rhythm. No arrhythmia. ECG personally reviewed: ECG 08/25/2020: Sinus bradycardia 55 bpm. Otherwise, normal ECG. Chest x-ray 08/25/2020: No acute process per Radiology. Chart reviewed. Medications Administered Current Inpatient Medications Acetaminophen (Acetaminophen 325 Mg Tab) 650 mg PO Q4H PRN PRN Reason: Pain or Fever Stop: 09/24/20 22:56 Aspirin (Aspirin 81 Mg Ectab) [facility] [place] Stop: 09/25/20 08:59 Last Admin: 08/26/20 09:08 Dose: 81 mg Documented by: Atorvastatin Calcium (Atorvastatin 10 Mg Tab) 10 mg PO HS [facility] Stop: 09/25/20 20:59 Chlorthalidone (Chlorthalidone 25 Mg Tab) 12.5 mg PO QAM [facility] Stop: 09/25/20 08:59 Dextrose (Dextrose 50% 50 Ml Syringe) 25 - 50 ml IV UD PRN; Protocol PRN Reason: Hypoglycemia Protocol Stop: 09/24/20 22:56 Glucagon (Glucagon For Inj 1 Mg Vial) 1 mg SQ UD PRN; Protocol PRN Reason: Hypoglycemia Protocol Stop: 09/24/20 22:56 Glucose (Glucose 10 Tabs/Tube) 4 - 8 tabs PO UD PRN; Protocol PRN Reason: Hypoglycemia Protocol Stop: 09/24/20 22:56 Glucose (Glucose 40% Gel 15 Gm Tube) 15 - 30 gm PO UD PRN; Protocol PRN Reason: Hypoglycemia Protocol Stop: 09/24/20 22:56 Insulin Aspart (Insulin Aspart 100 Units/Ml 3 Ml Pen) 0 units SC [facility] Stop: 09/25/20 07:29 Miscellaneous (Carbohydrates For Hypoglycemia ) 15 - 30 gm PO UD PRN PRN Reason: Hypoglycemia Protocol Stop: 09/24/20 22:56 Nitroglycerin (Nitroglycerin Sl 0.4 Mg/Tab Tab) 0.4 mg SL UD PRN PRN Reason: Chest Pain Stop: 09/24/20 22:56 Olmesartan (Olmesartan Medoxomil 40 Mg Tab) 40 mg PO [facility] Stop: 09/25/20 20:59 Ondansetron HCl (Ondansetron Inj 2 Mg/Ml 2 Ml Vial) 4 mg IV Q6H PRN PRN Reason: Nausea Stop: 09/24/20 22:56 PG Care Time/CCT Total # of Minutes Spent Total Time Spent with Patient: Total time spent is greater than 50% in c oordination of care (as documented) at patient's floor/unit and/or counseling patient: Coding Level of Care Code 80219 Office/OBS Consult Lvl 4 Diagnoses CAD (coronary artery disease) I25.10 Chest pain R07.9 Chest pain type: unspecified Dyspnea on exertion R06.00 Palpitations R00.2 Hypertension I10 Hypertension type: essential hypertension Dyslipidemia E78.5 Decreased exercise tolerance R68.89 (1) Chest pain Chest pain type: unspecified Qualified Code(s): R07.9 - Chest pain, unspecified (2) Hypertension Hypertension type: essential hypertension Qualified Code(s): I10 - Essential (primary) hypertension
[2020-08-26] MEDS ORDERED: INSULIN ASPART 100 UNITS/ML 3 ML PEN SC SCH (07:30)
[2020-08-26 08:21] LABS: BUN Creatinine Ratio 18.2 (10-20); Blood Urea Nitrogen 19 mg/dl (7-18); Calcium 8.9 mg/dl (8.5-10.1); Carbon Dioxide 28 mmol/L (21-32); Chloride 109 mmol/L (98-107); Creatinine Clr Calc Pharmacy 71.7 ml/min; Est GFR (Non-African American) 75.9; Glucose 95 mg/dl (70-99); Potassium 4.5 mmol/L (3.5-5.1); Sodium 141 mmol/L (136-145); Troponin I < 0.015 ng/ml (0-0.045)
[2020-08-26] MEDS ORDERED: ASPIRIN 81 MG ECTAB PO SCH (09:00)
[2020-08-26] MEDS ORDERED: CHLORTHALIDONE 25 MG TAB PO SCH (09:00)
--- NOTE | 2020-08-26 12:38 | XCELERA ---
[id number]
--- NOTE | 2020-08-26 14:06 | Electrocardiogram Report ---
Test Reason : Blood Pressure : / mmHG Vent. Rate : 055 BPM Atrial Rate : 055 BPM P-R Int : 144 ms QRS Dur : 092 ms QT Int : 432 ms P-R-T Axes : 030 032 035 degrees QTc Int : 413 ms Sinus bradycardia Otherwise normal ECG When compared with ECG of 02-JUL-2019 13:58, No significant change was found Confirmed by Jung Worthington ([id number]) on 08/26/2020 2:06:20 PM Referred By: REFERRED SELF Confirmed By:Jung Worthington
--- NOTE | 2020-08-26 18:32 | Discharge Summary ---
Date of Service August 26, 2020 Admission HPI Per Admitting Provider Arnel Gonzalez is a 59yo male presenting with episodic chest discomfort. He reports experiencing brief episodes of left sided chest discomfort today. Over the last 7-10 days he has woken up between 03:00 and 05:00 with the feeling of a racing heart and pounding headache. He checked his pulse during these episodes and found it to be 90 - 100 bpm and regular. He reports his baseline resting heart rate to be typically 50-60 bpm. He also reports BP has been higher than usual - appx 170/110 at times. Patient is very active. He reports slight decrease in exercise tolerance with some mild BERRY and easy fatigability. He denies exertional chest pain or palpitations. No syncope. No edema/orthopnea. Patient with history of HTN - well controlled on outpatient regimen as well as pre-DM. He has a strong family history of CAD - brother age 65 with recent CABG x 4V, brother age 55 with cardiac stent, father with ischemic cardiomyopathy, mother with CAD as well. Patient had a cardiac CT performed appx 5 years ago which showed diffuse, non- obstructive disease in coronary vessels - Cx and LAD. He has had both stress echo and dobutamine stress testing in the past which were unremarkable - no recent stress testing. No history of prior cardiac catheterization. On arrival to the ER patient afebrile, HD stable, NAD ER Course: ASA 324mg Principal Diagnosis Noncardiac chest pain negative stress test Discharge Exam The patient appeared well Vital signs as documented. Lungs are clear to auscultation and appear unlabored Cardiac exam, Rhythm is regular.. No murmurs, rubs or gallops. Abdominal exam reveals normal bowel sounds, soft non tender, no masses Extremities are nonedematous and both pedal pulses are normal. Neurologic exam is alert and oriented, no focal loss of strength or sensation Skin is without bruises or rashes Psychologically is without concerns for anxiety or depression. Discharge Data Allergies Allergy/AdvReac Type Severity Reaction Status Date / Time rosuvastatin [From Crestor] AdvReac Mild Muscle Verified 08/25/20 21:10 spasms Consultations 08/25/20 20:42 ED Decision to Admit Stat 08/25/20 22:57 Consult Cardiology Routine Hospital Course (1) Chest pain: 59yo male with history of HTN, HLP, pre-DM and strong family history of CAD presenting with episodic left sided chest discomfort. Troponin x 1 negative on presentation. EKG with no acute ischemic changes -Patient had negative trend of his troponins patient underwent a treadmill stress echocardiogram with no evidence of inducible ischemia regional wall motion abnormalities as related to me by Dr. Veras. Subsequently the patient will be discharged home to maintain his risk prevention of risk factor modification treating his hyperglycemia and dyslipidemia and hypertension. With description of some palpitations patient be set up for an outpatient multiday cardiac event monitor and follow-up with Dr. Veras in his office once that test is complete I did discuss with Dr. Gonzalez about work-up for alternatives such as GERD or pheochromocytoma etc. he was not interested in pursuing these at this time was most relieved that his concern for cardiac disease was ruled out he will continue to discuss with cardiology if additional symptoms are present at his follow-up appointment (2) Hyperlipidemia: (3) Diabetes mellitus, type 2: (4) Right knee DJD: (5) Subclinical hypothyroidism: (6) Hypertension: Blood pressure acceptable at present -Continue Chlorthalidone -Continue Benicar -Continue to monitor (7) Benign prostate hyperplasia: Total Time Total Time Spent Total Time Spent (In Minutes): Observational discharge Discharge Plan Discharge Items Patient Disposition: Home - Self-Care Reason For Visit: CHEST PAIN Discharge Diagnosis: non cardiac chest pain Activity: Resume your previous activity Activity Comment: slowly increase activity Non-emergency contact: Primary Care Provider and Technical Developer Call non-emergency contact if: you have any medication questions and your symptoms worsen Follow-up/Referrals: Dl Rogers MD [Primary Care Provider] - 08/28/20 3:20 pm Diet: Carb Consistent or DM2 Addtl Attending Provider Instructions: You performed very well during your cardiac stress test and as interpreted by Dr Veras there is no concern for an acute cardiac issue that could be responsible for your symptoms at this time Expect the [facility] Cardiology office to call to schedule placement of a home cardiac rehab nurse, then will have follow up with Dr Veras at the Cardiology office approximately two weeks later continue to self monitor and use common sense, if your symptoms worsen please return for re evaluation Pending Studies at Discharge: No Stand-Alone Forms: My [employer] [employer], Smoking Cessation Medications and DC Order Prescriptions: Continued folic acid 1 mg tablet 1 mg PO QAM RF: 0 cholecalciferol (vitamin D3) 5,000 unit capsule 5,000 units PO QPM RF: 0 coenzyme Q10 400 mg capsule 400 mg PO QPM RF: 0 potassium chloride 10 mEq tablet extended release 10 meq PO QAM Qty: 100 RF: 1 metformin 500 mg tablet extended release 24 hr 500 mg PO QAM Qty: 100 RF: 1 olmesartan [Benicar] 40 mg tablet 40 mg PO HS Qty: 30 RF: 11 atorvastatin 10 mg tablet 10 mg PO HS Qty: 90 RF: 1 Jardiance 10 mg tablet 10 mg PO QAM Qty: 30 RF: 5 Repatha SureClick 140 mg/mL pen injector 140 mg SUBCUT .[id number] RF: 0 Rybelsus 7 mg tablet 7 mg PO QAM RF: 0 aspirin 81 mg Tablet,Delayed Release (Dr/Ec) 81 mg PO QAM RF: 0 chlorthalidone 25 mg tablet 12.5 mg PO QAM RF: 0 Hold Instructions: no longer takes Discharge Orders: Discharge Order (Routine); Ordered 08/26/20 Ordered By: Eloy Nova Admission Data Admit Date/Time: 08/25/20 21:28 Attending Provider: Eloy Nova Admit Provider: Jelena Mcnamara Primary Care Provider: Dl Rogers V. Other Providers: Jelena Mcnamara ; Shashank Veras Other Interventions: Discharge Summary Assessment (RN) Last Done: 08/26/20 13:48 Coding Level of Care Code 99142 OBS Care - Discharge Diagnoses Chest pain R07.9 Chest pain type: unspecified Hyperlipidemia E78.01 Hyperlipidemia type: familial hypercholesterolemia Diabetes mellitus, type 2 E11.9 Diabetes mellitus terminal system operator insulin use: without prison use Diabetes mellitus complication status: without complication Right knee DJD M17.5 Osteoarthritis type: other secondary Subclinical hypothyroidism E03.9 Hypertension I10 Hypertension type: essential hypertension Benign prostate hyperplasia N40.0 Lower urinary tract symptom presence: symptoms absent
[2020-08-26] MEDS ORDERED: OLMESARTAN MEDOXOMIL 40 MG TAB PO SCH (21:00)
[2020-08-26] MEDS ORDERED: ATORVASTATIN 10 MG TAB PO SCH (21:00)
== END 2020-08-26 15:20 | disposition home or self-care (01) ==
LOC: 1E 19:06 → ED 19:06 → SUATTDRO 21:28 → 1E 22:22